=== PATIENT | male | born 1945 | race Caucasian/White ===

== ENCOUNTER 2024-10-18 06:22 | Emergency (ER) | payer OTHER, BC, SELFPAY ==
[2024-10-18 06:45] VITALS: BP 134/62; PULSE 123; RESP 16; TEMP 36.8; O2SAT 96
--- NOTE | 2024-10-18 06:55 | PD.EDRME ---
Rapid Medical Screening Exam RME Arrival date/time: 10/18/24 06:22 79-year-old male with no known medical history presents to the emergency room with a chief complaint of urinary retention x 2 days. I have greeted and performed a focused initial assessment of this patient. A comprehensive ED assessment and evaluation of the patient, analysis of all test results, and completion of the medical decision making process will be conducted by additional ED providers. Chief Complaint: Urogenital-Male Time Seen by Provider: 10/18/24 06:32 Vital signs: Vital Signs Temperature 98.2 F 10/18/24 06:45 Pulse Rate 123 H 10/18/24 06:45 Respiratory Rate 16 10/18/24 06:45 Blood Pressure 134/62 H 10/18/24 06:45 Pulse Oximetry (%) 96 10/18/24 06:45 Vital signs reviewed by provider: Yes
[2024-10-18 07:46] LABS: Basophils # (Auto) 0.1 Thou/mm3 (0.0-0.2); Basophils % (Auto) 1 % (0-2.5); Eosinophils # (Auto) 0.4 Thou/mm3 (0.0-0.5); Eosinophils % (Auto) 4 % (0-10); Hematocrit 31.5 % (41.0-53.0); Hemoglobin 10.0 g/dL (13.5-16.0); Immature Granulocytes Auto 0.03 Thou/mm3 (0.00-0.00); Lymphocytes # (Auto) 1.5 Thou/mm3 (1.0-4.8); Lymphocytes % (Auto) 15 % (10-50); Mean Corpuscular HGB Conc 31.7 g/dl (31.0-37.0); Mean Corpuscular Hemoglobin 30.8 pg (25.0-35.0); Mean Corpuscular Volume 97 fL (80-100); Monocytes # (Auto) 0.9 Thou/mm3 (0.0-0.8); Monocytes % (Auto) 9 % (0-12); Neutrophils # (Auto) 7.3 Thou/mm3 (1.8-7.7); Neutrophils % (Auto) 72 % (37-80); Nucleated Red Blood Cell # 0.00 Thou/mm3 (0.00-0.00); Nucleated Red Blood Cell % 0 /100 WBC (0); Platelet Count 353 Thou/mm3 (140-440); RDW Standard Deviation 53.7 fL (35.1-43.9); Red Blood Count 3.25 Miln/mm3 (4.50-5.90); White Blood Count 10.1 Thou/mm3 (3.8-10.6)
[2024-10-18 08:03] LABS: Alanine Aminotransferase 25 U/L (10-49); Albumin, Serum 4.5 gm/dL (3.4-4.8); Albumin/Globulin Ratio 1.8 (1.2-2.2); Alkaline Phosphatase 90 U/L (46-116); Anion Gap 13 (7-16); Aspartate Amino Transferase 31 U/L (0-34); BUN/Creatinine Ratio 17 Ratio (12-20); Bilirubin,Total 0.3 mg/dL (0.3-1.2); Blood Urea Nitrogen 31 mg/dL (9-23); Calcium 9.6 mg/dL (8.3-10.6); Calcium (Corrected) 9.6 mg/dL (8.5-10.1); Carbon Dioxide 21.2 mMol/L (20.0-31.0); Chloride 108 mMol/L (98-107); Creatinine (Component) 1.8 mg/dL (0.6-1.3); Globulin 2.5 gm/dL (2.3-3.5); Glucose 196 mg/dL (74-106); Osmolality,Calculated 294 (275-295); Potassium 4.0 mMol/L (3.4-5.1); Sodium 142 mMol/L (136-145); Total Protein 7.0 gm/dL (5.7-8.2); eGFR 37 See Note
[2024-10-18 08:14] LABS: INR 0.9 (0.9-1.3); Partial Thromboplastin Time 26.2 Seconds (22.0-36.0); Prothrombin Time 10.3 Seconds (9.0-12.2)
[2024-10-18 10:07] LABS: Collection Type, Urine Clean Catch
[2024-10-18 10:21] LABS: Bacteria,Urine 3+; Bilirubin,Urine Negative (Negative); Blood,Urine 2+ (Negative); Clarity,Urine Turbid (Clear/Hazy); Color,Urine Yellow (Lt Yel-Yel); Glucose, Urine Negative (Negative); Hyaline Casts,Urine < 1 /hpf (0-1); Ketones,Urine Negative (Negative); Leukocyte Esterase,Urine Positive (Negative); Nitrite,Urine Negative (Negative); PH,Urine 6.0 (5.0-7.0); Protein,Urine 2+ (Neg - Trace); RBC,Urine 35 /hpf (0-3); Specific Gravity,Urine 1.017 (1.001-1.035); Squamous Epithelial Cell,Urine 7 /hpf (0-5); Urobilinogen,Urine Negative mg/dL (0.0-1.0); WBC,Urine 147 /hpf (0-5)
--- NOTE | 2024-10-18 11:12 | EDNOTE_ITS ---
ED General RME/HPI General Chief complaint: Urogenital-Male Stated complaint: UNABLE TO URINATE Time Seen by Provider: 10/18/24 06:32 Arrival date/time: 10/18/24 06:22 CC: Urinary retention, with urgency and dribbling x 2 days. states this patient sees urologist Dr. Hays in [place] for prior urinary issues. Denies that the patient has had fever chills shortness of breath or difficulty breathing. RME / HPI RME / HPI narrative: 10/18/24 06:22 79-year-old male with no known medical history presents to the emergency room with a chief complaint of urinary retention x 2 days. I have greeted and performed a focused initial assessment of this patient. A comprehensive ED assessment and evaluation of the patient, analysis of all test results, and completion of the medical decision making process will be conducted by additional ED providers. Related Data Previous Rx's ?Medication ?Instructions ?Recorded sulfamethoxazole 800 1 tab PO BID 7 days #14 tabs 10/18/24 mg-trimethoprim 160 mg tablet (Bactrim DS) Allergies Allergy/AdvReac Type Severity Reaction Status Date / Time No Known Allergies Allergy Verified 10/18/24 06:23 Review of Systems Review of Systems Narrative Review of Systems: GEN: No fever, no chills, no weight loss EYES: No discharge, no visual changes, no pain HEENT: No ear pain, no congestion, no sore throat PULM: No shortness of breath, no cough, no congestion CV: No chest pain, no dyspnea on exertion, no palpitations GI: No nausea, no vomiting, no diarrhea, no pain, no constipation : No frequency, no urgency, no dysuria MUSC/SKEL: No joint pain, no back pain SKIN: No rash PSYCH: No hallucinations, no depression HEME/LYMPH: No easy bleeding or bruising tendencies NEURO: No weakness, no headache Past Medical History Social History SMOKING STATUS: Never smoker ED Exam Narrative Physical exam: [General: Not in any acute distress Head normocephalic HEENT: Eyes pupils are PERRLA EOMs are intact mouth pink moist membranes uvula is midline swallow symmetrical phonation is normal. Within acceptable limits Neck is supple nontender, no JVD no edema Chest equal chest rise nontender to palpation Respiratory: Clear to auscultation no wheezes crackles or rubs CV: Rate rhythm is regular no murmurs rubs or clicks Abdomen is soft nontender no masses positive bowel sounds all 4 quadrants. At time of the exam genitalia are normal, there is a Galeano catheter emitting from the meatus no surrounding leakage of urine, or bleeding. Clear yellow urine is draining into the Galeano bag. Back: No CVA tenderness no spinous process tenderness from cervical spine thoracic and lumbar spine Skin: Intact no petechiae rash induration ulceration or crepitus Extremities: Moving all extremity against resistance cap refill less than 2 seconds neurosensory intact Neuro: Awake alert oriented x3 Glascow coma 15 no focal deficits] Course Quality Measures none Orders Category Date Time Status Galeano [Urinary Catheter] QS Care 10/18/24 06:55 Completed Saline [Insert IV] NOW Care 10/18/24 11:15 Completed CBC Stat Lab 10/18/24 07:17 Completed CMP [Comprehensive Metabolic Panel] Stat Lab 10/18/24 07:17 Completed CMP [Comprehensive Metabolic Panel] Stat Lab 10/18/24 14:09 Completed PT [Prothrombin Time with INR] Stat Lab 10/18/24 07:17 Completed PTT [Partial Thromboplastin Time] Stat Lab 10/18/24 07:17 Completed UA [Urinalysis] Stat Lab 10/18/24 09:40 Completed Urine Culture Stat Lab 10/18/24 09:40 Received Sodium Chloride 0.9% 1000 ml [Ns] 1,000 ml Med 10/18/24 11:15 Discontinued IV 999 mls/hr Trimethoprim/Sulfa 160/800 Ds [Bactrim Ds] Med 10/18/24 11:11 Discontinued 1 tab PO X1 ONE Vital Signs Vital signs: Vital Signs Temperature 98.2 F 10/18/24 06:45 Pulse Rate 123 H 10/18/24 06:45 Respiratory Rate 16 10/18/24 06:45 Blood Pressure 134/62 H 10/18/24 06:45 Pulse Oximetry (%) 96 10/18/24 06:45 Discharge Plan Plan Patient Disposition: HOME (Self Care) Prescriptions/Referrals Prescriptions/Med Rec: New sulfamethoxazole-trimethoprim [Bactrim DS] 800-160 mg tablet 1 tab PO BID 7 Days Qty: 14 0RF Referrals: Juan Manuel Fernandez MD [Primary Care Provider] - In 1 week Problem List Clinical Impression: Acute urinary retention, BRIANNE (acute kidney injury) Patient/Caregiver Discharge Instructions Additional Instructions: Take the medications as prescribed drink plenty of water follow-up promptly with Dr. Hays if there is worsening of symptoms return the emergency room medially for further evaluation. Print Language: Jordanian Stand Alone Forms: Stella Award Info., Patient Portal Info Letter PA/THERMAL TECHNICIAN Supervising Physician PA/THERMAL TECHNICIAN Supervising Physician: Michael Rod ENP, MD Attestation MD Attestation The patient was seen by the midlevel practitioner. I, the co-signing physician, was present during the entire ER visit. While I did not physically examine the patient, I was available for consultation as needed. I agree with the plan and documentation. MDM Clinical Information Provided by none, patient and spouse Medical Records Reviewed [facility] Meds/Rx Considered, not Ordered None Labs/Rad/Tests considered, not Ordered None Chronic Illness/Social Conditions Add or document further as needed: Dementia? EKG EKG not done Lab Interpretation Lab(s) interpretation(s): CBC shows no acute leukocytosis there is a mild anemia with a hemoglobin of 10.0 hematocrit of 31.5. Platelets at 353 no other abnormalities. Coags within acceptable limits BUN noted to 31 creatinine of 1.8. Glucose at 196 no other electrolyte imbalances renal impairment transaminitis or T. bili elevation Urine is turbid 2+ protein 2+ blood 35 RBCs 147 WBCs squamous epithelia 3+ bacteria. Leukocyte esterase positive. Imaging Imaging interpretation: none Radiology reports / interpretation(s): I am no prior lab values however of concern is the patient's BUN and creatinine which is elevated will give the patient a liter of fluid and redraw. Medication Administration(s) Medication Administration History Discontinued Medications Sodium Chloride (Ns) 1,000 mls @ 999 mls/hr IV .Q1H1M ONE Stop: 10/18/24 12:15 Last Infusion: 10/18/24 13:38 Dose: Infused Documented By: Admin: 10/18/24 12:28 Dose: 999 mls/hr Documented By: Trimethoprim/Sulfamethoxazole (Trimethoprim/Sulfa 160/800 Ds Tablet) 1 tab PO X1 ONE Stop: 10/18/24 11:12 Last Admin: 10/18/24 13:05 Dose: 1 tab Documented By:
[2024-10-18] MEDS: SODIUM CHLORIDE 0.9% 1000 ML 1,000 ML 999 ML IV (12:28)
[2024-10-18] MEDS: TRIMETHOPRIM/SULFA 160/800 DS TABLET 1 TAB PO (13:05)
[2024-10-18 13:09] VITALS: BP 151/55; PULSE 90; RESP 18; TEMP 36.8; O2SAT 96
[2024-10-18 14:42] LABS: Alanine Aminotransferase 21 U/L (10-49); Albumin, Serum 4.1 gm/dL (3.4-4.8); Albumin/Globulin Ratio 1.8 (1.2-2.2); Alkaline Phosphatase 84 U/L (46-116); Anion Gap 9 (7-16); Aspartate Amino Transferase 23 U/L (0-34); BUN/Creatinine Ratio 19 Ratio (12-20); Bilirubin,Total 0.3 mg/dL (0.3-1.2); Blood Urea Nitrogen 27 mg/dL (9-23); Calcium 9.1 mg/dL (8.3-10.6); Calcium (Corrected) 9.1 mg/dL (8.5-10.1); Carbon Dioxide 23.6 mMol/L (20.0-31.0); Chloride 112 mMol/L (98-107); Creatinine (Component) 1.4 mg/dL (0.6-1.3); Globulin 2.3 gm/dL (2.3-3.5); Glucose 169 mg/dL (74-106); Osmolality,Calculated 297 (275-295); Potassium 3.9 mMol/L (3.4-5.1); Sodium 145 mMol/L (136-145); Total Protein 6.4 gm/dL (5.7-8.2); eGFR 50 See Note
== END 2024-10-18 16:05 | disposition home or self-care (01) ==
PROVIDERS: Nurse Practitioner Family; Registered Nurse General Practice; Emergency Provider Family Medicine; PCP Internal Medicine
DX: N17.9 Acute kidney failure, unspecified (principal)
CPT/HCPCS: 36415; 80053; 81001; 85025; 85610; 85730; 87077; 87086; 87186; 96360; 99283; J7030; A9270